=== PATIENT | male | born 2005 | race Caucasian/White ===

== ENCOUNTER 2024-09-18 08:06 | Outpatient (CLI) | payer BC, SELFPAY ==
--- NOTE | 2024-09-18 08:15 | CRLHL7_ITS ---
For Patients: As a result of the Century Cures Act, medical imaging exams and procedure reports are released immediately into your electronic medical record. You may view this report before your referring provider. If you have questions, please contact your health care provider. Indication: Palpable mass in the left. Technique: Ultrasound examination of the area of palpable abnormality in the left lower neck is performed with high-resolution linear transducer. Comparison: None available Findings: The palpable abnormality corresponds to a well-circumscribed solid-appearing mass deep to the strap muscles of the neck measuring 4.0 x 1.7 x 2.4 centimeters with uniform hypoechoic material and no sign of increased color Doppler flow. This does not have the appearance of a lymph node. I suggest CT of the neck with contrast to further characterize this mass. Impression: 1. Palpable abnormality in the left lower neck is seen to be a solid, uniformly hypoechoic, well-circumscribed mass deep to the strap muscles measuring up to 4.0 centimeters in length. 2. Recommend CT of the neck contrast. Dictated by Álvaro Castillo MD @ 09/18/2024 10:50:53 AM (Electronically Signed)
== END 2024-09-18 08:07 | disposition home or self-care (01) ==
LOC: US 08:08
PROVIDERS: Visit Provider Registered Nurse
DX: R22.1 Localized swelling, mass and lump, neck (principal)
CPT/HCPCS: 76536

== ENCOUNTER 2024-09-27 10:39 | Outpatient (CLI) | payer BC, SELFPAY ==
--- NOTE | 2024-09-27 11:00 | CRLHL7_ITS ---
For Patients: As a result of the Century Cures Act, medical imaging exams and procedure reports are released immediately into your electronic medical record. You may view this report before your referring provider. If you have questions, please contact your health care provider. Indication: Soft tissue mass, left neck. Technique: Contrast-enhanced CT of the neck with multiplanar reconstructions utilizing bone and soft tissue algorithms. Comparison: Correlated with ultrasound dated 09/18/2024. Findings: A cystic lesion within the left neck underlying the sternocleidomastoid muscle measures 2.4 x 2.0 x 4.0 cm (series 3, image 36 and series 4, image 81). The eduardo of the lesion are somewhat irregular and thickened, especially inferiorly (series 4, image 82). No convincing mucosal based mass or suspicious enhancement is identified. No pathologically enlarged lymph nodes elsewhere within the neck. Normal parotid and submandibular glands. Unremarkable thyroid. The lung apices are clear. The major vascular structures are within normal limits. The osseous structures are unremarkable. The imaged intracranial structures and orbits appear within normal limits. Impression: 1. Cystic lesion within the left neck chest lateral to the carotid sheath and deep to the sternocleidomastoid muscle. 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 2. Mild thickening of the lesion eduardo potentially reflecting superimposed infection. 3. No soft tissue mass or cervical lymphadenopathy elsewhere within the neck. Please note that all CT scans at this facility use dose modulation, iterative reconstruction, and/or weight-based dosing when appropriate to reduce radiation dose to as low as reasonably achievable. Dictated by Gt Umaña MD @ 10/01/2024 8:13:05 AM (Electronically Signed)
== END 2024-09-27 10:40 | disposition home or self-care (01) ==
LOC: CT 10:40
PROVIDERS: PCP Registered Nurse; Visit Provider Registered Nurse
DX: R22.1 Localized swelling, mass and lump, neck (principal); M79.89 Other specified soft tissue disorders
CPT/HCPCS: 70491; Q9967